=== PATIENT | male | born 1995 | race Caucasian/White ===

== ENCOUNTER → 2020-06-21 | Outpatient (CLI) | payer BC ==
--- NOTE | 2020-06-21 13:15 | XR ---
EXAMINATION TYPE: XR cervical spine comp DATE OF EXAM: 06/21/2020 COMPARISON: NONE HISTORY: Pain TECHNIQUE: Four views are submitted. FINDINGS: The odontoid is intact. There are no compression deformities. The prevertebral soft tissue structur es are within normal limits hypertrophic changes at C4-C5, C5-6 and C6-C7 with anterior spurring at p osterior spondylosis. IMPRESSION: 1. Multilevel degenerative disc disease.
== END | disposition home or self-care (01) ==
LOC: RADXRYALE 12:48
PROVIDERS: ATTEND Physician Assistant Medical
DX: M50.321 Other cervical disc degeneration at C4-C5 level (principal); G43.009 Migraine without aura, not intractable, without status migrainosus
CPT/HCPCS: 72050